=== PATIENT | male | born 1960 | race Hispanic/Latino ===

== ENCOUNTER 2022-02-23 16:52 | Inpatient (IN) | payer BC ==
[~2022-02-23] VITALS: Ht 167.6 cm; Wt 104.3 kg
[~2022-02-23 16:52] MED LIST: CIPRO500 MG PO; FLAGYL375 MG PO; METFORMIN HCL500 MG PO; ULTRAM50 MG PO
[2022-02-23] MEDS ORDERED: CEFTRIAXONE 1 GM VIAL IV SCH (18:15)
[2022-02-23] MEDS ORDERED: ACETAMINOPHEN 325 MG TAB PO ONE (18:15)
[2022-02-23] MEDS ORDERED: SODIUM CHLORIDE 0.9% 1000ML 1,980 ML IV ONE (18:15)
[2022-02-23 18:58] LABS: BASOPHILS % 0.2 % (0.0-1.0); EOSINOPHILS % 0.1 % (0.0-6.0); HEMATOCRIT 41.4 % (38.2-49.6); HEMOGLOBIN 13.9 g/dL (14.0-18.0); LYMPHOCYTES # (AUTO) 1.1 (1.0-3.2); LYMPHOCYTES % 7.7 % (18.0-39.1); MEAN CORPUSCULAR HEMOGLOBIN 27.9 pg (28-32); MEAN CORPUSCULAR HGB CONC 33.6 g/dL (31-35); MEAN CORPUSCULAR VOLUME 83.1 fL (81-99); MONOCYTES # (AUTO) 1.4 (0.2-0.8); MONOCYTES % 9.8 % (4.4-11.3); NEUTROPHILS % 81.7 % (38.7-80.0); PLATELET COUNT 225 x10e3/uL (140-360); RED BLOOD COUNT 4.98 x10e6/uL (4.3-5.7); RED CELL DISTRIBUTION WIDTH 13.6 % (11.7-14.4)
[2022-02-23 18:59] LABS: INR 1.04; PROTHROMBIN TIME 14.5 seconds (11.9-14.5)
[2022-02-23 19:00] LABS: PARTIAL THROMBOPLASTIN TIME 32.2 seconds (23.8-35.5)
[2022-02-23 19:10] LABS: ALBUMIN 3.3 g/dL (3.5-5.0); ALBUMIN/GLOBULIN RATIO 0.7 (0.8-2.0); ANION GAP 14.4 mmol/L (8-16); CALCIUM 8.1 mg/dL (8.4-10.2); CREATININE, SERUM 0.84 mg/dL (0.72-1.25); POTASSIUM 3.4 mmol/L (3.5-5.1)
[2022-02-23 19:57] LABS: CLARITY,URINE CLOUDY (CLEAR); COLOR,URINE YELLOW (YELLOW); KETONES,URINE NEGATIVE (NEGATIVE); LEUKOCYTE ESTERASE ,URINE NEGATIVE (NEGATIVE); NITRITE,URINE NEGATIVE (NEGATIVE); PROTEIN,URINE DIPSTICK 1+ (NEGATIVE)
[2022-02-23 20:18] LABS: BACTERIA,URINE MODERATE /HPF; EPITHELIAL CELLS,URINE FEW /LPF; RBC,URINE >50 /HPF (0-5)
[2022-02-23] MEDS ORDERED: AMIODARONE 900MG 900 MG in Premix Bag 1 BAG IV SCH (20:45)
[2022-02-23] MEDS ORDERED: AMIODARONE HCL 100 ML IV ONE (20:49)
[2022-02-23] MEDS ORDERED: AMIODARONE 900MG 500 ML IV ONE (20:49)
[2022-02-23] MEDS ORDERED: AMIODARONE HCL 150 MG/100 ML BAG IV ONE (20:50)
[2022-02-23] MEDS ORDERED: ONDANSETRON HCL INJ 2MG/ML 2ML 2 MG/ML VIAL IV PRN (23:15)
[2022-02-23] MEDS ORDERED: Morphine 4mg INJECTION 4 MG/ML INJ IV PRN (23:15)
[2022-02-23] MEDS ORDERED: METRONIDAZOLE 500MG/NS 100ML 100 ML IV ONE ×2 (23:20→23:30)
[2022-02-24] VITALS (11 sets, daily range): BP systolic 121–157; BP diastolic 67–118
[2022-02-24] MEDS: SODIUM CHLORIDE 0.9% 1000ML 1,000 ML IV SCH ×2 (00:16→08:45)
[2022-02-24] MEDS ORDERED: MELATONIN 5 MG TABLET PO PRN (01:15)
[2022-02-24] MEDS ORDERED: DEXTROSE 50% SYRINGE 50 ML IV PRN (01:15)
[2022-02-24] MEDS ORDERED: BENZONATATE 100 MG CAP PO PRN (01:15)
[2022-02-24] MEDS ORDERED: ACETAMINOPHEN 325 MG TAB PO PRN (01:15)
[2022-02-24] MEDS ORDERED: POTASSIUM CHLORIDE 20 MEQ TAB CR PO PRN (01:15)
[2022-02-24] MEDS ORDERED: DIPHENHYDRAMINE HCL 25 MG CAP PO PRN (01:15)
[2022-02-24] MEDS ORDERED: LIDOCAINE 4% PATCH TP PRN (01:15)
[2022-02-24] MEDS ORDERED: ALBUTEROL/IPRATROPIUM 3 ML NEB NEB PRN (01:15)
[2022-02-24] MEDS ORDERED: HYDRALAZINE HCL 20 MG/ML VIAL IV PRN (01:15)
[2022-02-24] MEDS ORDERED: DOCUSATE SODIUM 100 MG CAP PO PRN (01:15)
[2022-02-24] MEDS ORDERED: PHENAZOPYRIDINE HCL 100 MG TAB PO PRN (01:15)
[2022-02-24 01:42] LABS: CREATINE KINASE MB 0.9 ng/mL (0-5.0)
[2022-02-24 02:46] LABS: CREATINE KINASE 48 IU/L (30-200)
[2022-02-24 05:48] LABS: BASOPHILS % 0.4 % (0.0-1.0); EOSINOPHILS % 0.1 % (0.0-6.0); HEMATOCRIT 38.3 % (38.2-49.6); HEMOGLOBIN 12.7 g/dL (14.0-18.0); LYMPHOCYTES # (AUTO) 1.4 (1.0-3.2); LYMPHOCYTES % 12.9 % (18.0-39.1); MEAN CORPUSCULAR HEMOGLOBIN 28.5 pg (28-32); MEAN CORPUSCULAR HGB CONC 33.2 g/dL (31-35); MEAN CORPUSCULAR VOLUME 85.9 fL (81-99); MONOCYTES # (AUTO) 1.3 (0.2-0.8); MONOCYTES % 12.5 % (4.4-11.3); NEUTROPHILS # (AUTO) 7.7 (2.1-6.9); NEUTROPHILS % 73.7 % (38.7-80.0); PLATELET COUNT 221 x10e3/uL (140-360); RED BLOOD COUNT 4.46 x10e6/uL (4.3-5.7); RED CELL DISTRIBUTION WIDTH 13.7 % (11.7-14.4)
[2022-02-24] MEDS ORDERED: METRONIDAZOLE 500MG/NS 100ML 100 ML IV SCH (06:00)
[2022-02-24 06:06] LABS: ALBUMIN 2.8 g/dL (3.5-5.0); ALBUMIN/GLOBULIN RATIO 0.6 (0.8-2.0); ANION GAP 11.2 mmol/L (8-16); CALCIUM 7.4 mg/dL (8.4-10.2); CREATININE, SERUM 0.79 mg/dL (0.72-1.25); POTASSIUM 3.2 mmol/L (3.5-5.1)
[2022-02-24] MEDS ORDERED: IOPAMIDOL 370 MG/ML 100 ML INFUS..BTL INJ ONE (06:07)
[2022-02-24] MEDS: PANTOPRAZOLE SOD 40 MG TABEC PO SCH (07:30)
[2022-02-24] MEDS ORDERED: POTASSIUM CHLORIDE 10 MEQ/100 ML IV ONE (08:45)
[2022-02-24] MEDS: POTASSIUM CHLORIDE 10MEQ/100ML 100 ML INJ SCH ×2 (09:00→10:00)
[2022-02-24 10:00] LABS: CREATINE KINASE 42 IU/L (30-200)
[2022-02-24] MEDS: D5.45%NS/KCL 20MEQ 1,000 ML IV SCH ×2 (11:43→18:45)
[2022-02-24] MEDS: METOPROLOL TARTRATE 50 MG TAB PO SCH ×2 (11:44→17:00)
[2022-02-25] VITALS (20 sets, daily range): BP systolic 128–161; BP diastolic 66–120
[2022-02-25 04:36] LABS: BASOPHILS # (AUTO) 0.1 (0.0-0.1); BASOPHILS % 0.6 % (0.0-1.0); EOSINOPHILS # (AUTO) 0.2 (0.0-0.4); EOSINOPHILS % 1.7 % (0.0-6.0); HEMATOCRIT 37.8 % (38.2-49.6); HEMOGLOBIN 12.5 g/dL (14.0-18.0); LYMPHOCYTES # (AUTO) 1.7 (1.0-3.2); LYMPHOCYTES % 19.1 % (18.0-39.1); MEAN CORPUSCULAR HEMOGLOBIN 28.1 pg (28-32); MEAN CORPUSCULAR HGB CONC 33.1 g/dL (31-35); MEAN CORPUSCULAR VOLUME 84.9 fL (81-99); MONOCYTES # (AUTO) 1.3 (0.2-0.8); NEUTROPHILS # (AUTO) 5.8 (2.1-6.9); NEUTROPHILS % 63.9 % (38.7-80.0); PLATELET COUNT 233 x10e3/uL (140-360); RED BLOOD COUNT 4.45 x10e6/uL (4.3-5.7); RED CELL DISTRIBUTION WIDTH 13.6 % (11.7-14.4)
[2022-02-25 04:59] LABS: ALBUMIN 2.6 g/dL (3.5-5.0); ALBUMIN/GLOBULIN RATIO 0.6 (0.8-2.0); ANION GAP 13.5 mmol/L (8-16); CALCIUM 7.5 mg/dL (8.4-10.2); CHOL/HDL RATIO 7.1 (3.9-4.7); CREATININE, SERUM 0.75 mg/dL (0.72-1.25); POTASSIUM 3.5 mmol/L (3.5-5.1)
[2022-02-25 05:20] LABS: THYROID STIMULATING HORMONE 0.484 uIU/mL (0.350-4.940)
[2022-02-25] MEDS: D5.45%NS/KCL 20MEQ 1,000 ML IV SCH (05:26)
[2022-02-25] MEDS: PANTOPRAZOLE SOD 40 MG TABEC PO SCH (08:51)
[2022-02-25] MEDS: METOPROLOL TARTRATE 50 MG TAB PO SCH ×2 (08:52→17:10)
[2022-02-25] MEDS ORDERED: AMIODARONE HCL 200 MG TAB PO SCH (12:15)
[2022-02-25] MEDS: AMIODARONE HCL 200 MG TAB PO SCH ×2 (14:53→20:41)
[2022-02-25] MEDS ORDERED: PIPERACILLIN/TAZOBACTAM 3.375 GM VIAL ONE (20:05)
[2022-02-25] MEDS: ENOXAPARIN SOD INJ 40 MG/0.4 ML SYR SC SCH (21:15)
[2022-02-26] VITALS (7 sets, daily range): BP systolic 117–150; BP diastolic 76–87
[2022-02-26 05:34] LABS: BASOPHILS # (AUTO) 0.1 (0.0-0.1); BASOPHILS % 0.5 % (0.0-1.0); EOSINOPHILS # (AUTO) 0.3 (0.0-0.4); HEMATOCRIT 39.7 % (38.2-49.6); HEMOGLOBIN 13.1 g/dL (14.0-18.0); LYMPHOCYTES # (AUTO) 2.5 (1.0-3.2); LYMPHOCYTES % 27.2 % (18.0-39.1); MEAN CORPUSCULAR HEMOGLOBIN 27.9 pg (28-32); MEAN CORPUSCULAR VOLUME 84.6 fL (81-99); MONOCYTES % 11.1 % (4.4-11.3); NEUTROPHILS # (AUTO) 5.3 (2.1-6.9); NEUTROPHILS % 57.7 % (38.7-80.0); PLATELET COUNT 261 x10e3/uL (140-360); RED BLOOD COUNT 4.69 x10e6/uL (4.3-5.7); RED CELL DISTRIBUTION WIDTH 13.6 % (11.7-14.4)
[2022-02-26 06:03] LABS: ANION GAP 13.4 mmol/L (8-16); CALCIUM 8.4 mg/dL (8.4-10.2); CREATININE, SERUM 0.8 mg/dL (0.72-1.25); POTASSIUM 3.4 mmol/L (3.5-5.1)
[2022-02-26] MEDS: PANTOPRAZOLE SOD 40 MG TABEC PO SCH (08:57)
[2022-02-26] MEDS: AMIODARONE HCL 200 MG TAB PO SCH ×3 (08:57→21:00)
[2022-02-26] MEDS: METOPROLOL TARTRATE 50 MG TAB PO SCH ×2 (08:58→17:08)
[2022-02-26] MEDS: ENOXAPARIN SOD INJ 40 MG/0.4 ML SYR SC SCH (17:00)
[2022-02-27] VITALS (13 sets, daily range): BP systolic 122–152; BP diastolic 74–91
[2022-02-27] MEDS: METOPROLOL TARTRATE 50 MG TAB PO SCH ×2 (08:39→17:40)
[2022-02-27] MEDS: AMIODARONE HCL 200 MG TAB PO SCH ×3 (08:39→20:42)
[2022-02-27] MEDS: PANTOPRAZOLE SOD 40 MG TABEC PO SCH (08:40)
[2022-02-27] MEDS ORDERED: ONDANSETRON HCL 4 MG ORAL DISINTEGRATING TAB PO PRN (09:15)
[2022-02-27] MEDS ORDERED: GADOBENATE DIMEGLUMINE 1 ML IV ONE (11:40)
[2022-02-27] MEDS ORDERED: AMIODARONE HCL200 MG PO (13:16)
[2022-02-27] MEDS ORDERED: ELIQUIS5 MG PO (13:16)
[2022-02-27] MEDS ORDERED: METOPROLOL TART50 MG PO (13:16)
[2022-02-27] MEDS: ENOXAPARIN SOD INJ 40 MG/0.4 ML SYR SC SCH (17:41)
[2022-02-28] VITALS: BP 136/75
[2022-02-28 04:00] VITALS: BP 130/73
[2022-02-28 08:05] VITALS: BP 129/81
[2022-02-28 09:07] VITALS: BP 129/81
[2022-02-28] MEDS: PANTOPRAZOLE SOD 40 MG TABEC PO SCH (09:37)
[2022-02-28] MEDS: METOPROLOL TARTRATE 50 MG TAB PO SCH (09:37)
[2022-02-28] MEDS: AMIODARONE HCL 200 MG TAB PO SCH (09:37)
[2022-02-28 12:00] VITALS: BP 133/79
[2022-02-28] MEDS ORDERED: AUGMENTIN 500-1 EACH PO (12:19)
== END 2022-02-28 12:55 | disposition home or self-care (01) | DRG 871 ==
LOC: ER 18:10 → ERHOLD 23:16 → ICU 02-24 16:20 → MED/SURG 02-25 17:21
PROVIDERS: ADMIT Internal Medicine; ATTEND Internal Medicine
DX: A41.9 Sepsis, unspecified organism (principal); K75.0 Abscess of liver; I48.92 Unspecified atrial flutter; E86.0 Dehydration; R73.03 Prediabetes; E66.01 Morbid (severe) obesity due to excess calories; Z68.37 Body mass index [BMI] 37.0-37.9, adult; Z90.49 Acquired absence of other specified parts of digestive tract; Z79.01 Long term (current) use of anticoagulants
CPT/HCPCS: 36415; 71046; 74177; 74183; 80048; 80053; 80061; 81001; 82270; 82550; 82553; 82948; 83605; 83690; 83735; 84443; 84484; 85025; 85610; 85730; 87040; 87086; 93005; 93306; 99285; J0696; J1650; J2543; J7030; Q9967

== ENCOUNTER → 2022-06-06 | Outpatient (CLI) | payer BC ==
[~2022-06-06] MED LIST changes: +AMIODARONE HCL200 MG PO; +AUGMENTIN 500-1 EACH PO; +ELIQUIS5 MG PO; +METOPROLOL TART50 MG PO
== END ==
LOC: US 15:39
PROVIDERS: ATTEND Family Medicine
DX: K75.0 Abscess of liver (principal)
CPT/HCPCS: 76705